=== PATIENT | male | born 1960 | race Caucasian/White ===

== ENCOUNTER 2018-11-04 17:57 | Inpatient (IN) | payer MEDICAID ==
[2018-11-04] MEDS ORDERED: Morphine 4 MG/ML VIAL ONE ×2 (19:17→21:36)
[2018-11-04] MEDS ORDERED: methylPREDNISolone Sod Succ/PF 125 MG/2 ML VIAL ONE (19:18)
[2018-11-04] MEDS ORDERED: Magnesium 2 GM/50 ML BAG (IN WATER) ONE (19:18)
[2018-11-04 19:20] LABS: Bilirubin Negative (Negative); Blood, Urine Negative (Negative); Clarity CLEAR (Clear); Glucose, Urine (Dipstick) Negative (Negative); Leukocyte Negative (Negative); Nitrite Negative (Negative); Protein, Urine (Dipstick) 100 mg/dL (Neg-Trace); Specific Gravity, Urine 1.016 (1.002-1.036); Urobilinogen 0.2 mg/dL (0.2-1.0); pH, Urine 7.5 (5.0-9.0)
[2018-11-04 19:23] LABS: Bacteria/HPF None Seen HPF (None Seen); Hyaline Casts/LPF 0-3 HYALINE CAST LPF (0-3 Hyaline); Pathc Cast-AUWi Flag 0.87 (0-2.49); RBC/HPF 0-3 HPF (0-3); Squamous Epithelial 0-3 HPF (0-3); WBC/HPF 0-3 HPF (0-3)
--- NOTE | 2018-11-04 19:30 | RAD ---
FRONTAL RADIOGRAPH CHEST 11/04/18 COMPARISON: None. HISTORY: Chest pain. FINDINGS: Lungs are clear. Mild pulmonary vascular prominence. Heart and mediastinal con tours appear grossly u nremarkable. IMPRESSION: No focal consolidation or alveolar edema. POS: [facility]
[2018-11-04 20:00] LABS: #Basophils 0.1 thou/uL (0.0-0.2); #Eosinphils 0.3 thou/uL (0.0-0.7); #Lymphocytes 2.7 thou/uL (1.20-3.40); #Monocytes 0.8 thou/uL (0.11-0.59); #Neutrophils 4.6 thou/uL (1.40-6.50); %Basophils 0.7 % (0.0-1.0); %Lymphocytes 31.7 % (21.0-51.0); %Monocytes 9.6 % (0.0-10.0); Hemoglobin 14.1 g/dL (14.0-18.0); Mean Corpuscular HGB CONC 30.7 g/dL (32.0-36.0); Mean Corpuscular Hemoglobin 29.4 pg (27.0-31.0); Mean Corpuscular Volume 95.7 fL (78.0-98.0); Mean Platelet Volume 7.7 fL (7.4-10.4); Platelet Count 306 thou/uL (130-400); RBC Distribution Width 13.7 % (11.5-14.5); White Blood Cell (WBC) Count 8.4 thou/uL (4.8-10.8)
[2018-11-04 20:40] LABS: ALT (SGPT) 16 U/L (8-55); AST (SGOT) 16 U/L (5-34); Albumin 3.8 g/dL (3.5-5.0); Alkaline Phosphatase 104 U/L (40-150); Anion Gap 13 mmol/L (10-20); BUN (Urea Nitrogen) 8 mg/dL (8.4-25.7); Bilirubin, Total 0.3 mg/dL (0.2-1.2); Calc. Creatinine Clearance 0 mL/min (70-130); Calcium 9.2 mg/dL (7.8-10.44); Carbon Dioxide 34 mmol/L (22-29); Chloride 96 mmol/L (98-107); Estimated GFR-MDRD Greater than 90; Globulin 2.8 g/dL (2.4-3.5); Glucose 95 mg/dL (70-105); Lipase 5 U/L (8-78); Protein, Total 6.6 g/dL (6.0-8.3); Sodium 139 mmol/L (136-145)
[2018-11-04 21:57] LABS: Amphetamine Not Detected (NotDetected); Barbiturates Screen Not Detected (NotDetected); Benzodiazepine Screen Not Detected (NotDetected); Cocaine Metabolite Screen Not Detected (NotDetected); Medtox Control Line Valid? VALID (VALID); Medtox Reader # READER 4; Methadone Not Detected (NotDetected); Methamphetamine Not Detected (NotDetected); Opiate Screen Detected (NotDetected); Oxycodone Screen Not Detected (NotDetected); Phencyclidine (PCP) Not Detected (NotDetected); THC/Cannabinoid Screen Not Detected (NotDetected); Tricyclic Screen Not Detected (NotDetected)
[2018-11-04] MEDS ORDERED: Acetaminophen 325 MG TAB PO PRN (23:19)
[2018-11-04] MEDS ORDERED: Ondansetron PF 4 MG/2 ML Vial IVP PRN (23:19)
[2018-11-04] MEDS ORDERED: Sodium Chloride 0.9% 1,000 ML IV SCH (23:19)
[2018-11-04] MEDS ORDERED: Ondansetron ODT 4 MG TAB SL PRN (23:19)
[2018-11-05 00:13] VITALS: BMI 36.4
[2018-11-05] MEDS: Morphine 4 MG/ML VIAL SLOW IVP PRN ×4 (01:43→20:11)
[2018-11-05] MEDS ORDERED: Calcium Carbonate 500 MG ChewTAB PO PRN (04:43)
[2018-11-05] MEDS ORDERED: Nitroglycerin 0.4 MG TAB (25 Tab Bottle) PO PRN (04:43)
[2018-11-05] MEDS ORDERED: Acetaminophen 325 MG TAB PO PRN (04:43)
--- NOTE | 2018-11-05 07:41 | HP ---
CHIEF COMPLAINT: Shortness of breath. HISTORY OF PRESENT ILLNESS: The patient is a 58-year-old male with COPD, presented to the emergency room with worsening shortness of breath over the last 2 to 3 weeks. His shortness of breath got worse yesterday. He also complains of some orthopnea with leg swelling. He is out of nebulizer medications. He had significant chest tightness and wheezing as well. He had cough that was productive of thick whitish phlegm. He denies recent immobilization, travel, syncope, palpitations, or diaphoresis. He felt better after using oxygen at home. In the emergency room, initial vital signs showed temperature 98.3, respiration 20, pulse 90, blood pressure 146/89 with O2 saturation 47% on 4 L nasal cannula. Chest x-ray was negative for infiltrate. He received magnesium nebulizer treatment and steroids in the emergency room. EKG showed sinus rhythm. PAST MEDICAL HISTORY: 1. COPD. 2. Chronic respiratory failure, on intermittent O2. 3. Hypertension. PAST SURGICAL HISTORY: 1. Left leg surgery. 2. Lumbar surgery. ALLERGIES: THE PATIENT IS ALLERGIC TO VANCOMYCIN. CURRENT HOME MEDICATIONS: 1. Lisinopril 20 mg daily. 2. [place] as needed. Please note that the patient currently out of nebulizer treatments. He also does not have any inhalers at home. FAMILY HISTORY: Negative for premature coronary artery disease. SOCIAL HISTORY: The patient continues to smoke on a daily basis. No alcohol or drug use. REVIEW OF SYSTEMS: All other review of systems was reviewed and were found negative. PHYSICAL EXAMINATION: VITAL SIGNS: As discussed above. GENERAL: A 58-year-old male in mild respiratory distress, able to complete short phrases. HEENT: Head atraumatic, normocephalic. Sclerae anicteric. Moist mucous membranes. No oral lesion. NECK: Supple. No JVD appreciated. No carotid bruit. LUNGS: Showed diffuse expiratory wheezing. There were scattered rhonchi. No rales appreciated. HEART: S1 and S2 present. Regular rate and rhythm. No rubs or gallops appreciated. No significant murmurs. ABDOMEN: Soft. Bowel sounds present. EXTREMITIES: 1+ edema in bilateral lower extremity. No calf tenderness. SKIN: Warm and dry. LYMPH NODES: No palpable lymph nodes in the neck. PERIPHERAL VASCULAR: Radial pulses palpable bilaterally. MUSCULOSKELETAL: No joint swelling or tenderness. LABORATORY FINDINGS: WBC 8.4 with hemoglobin 14.1. Troponin was negative. BNP 16.3, sodium 139, potassium 4, chloride 96, bicarb 34, BUN 8 and creatinine 0.8. Urinalysis was negative for wbc's and bacteria. Urine drug screen was positive for opiates. Chest x-ray by my review was negative for infiltrate or edema. EKG by my review as discussed above. IMPRESSION: 1. Acute hypoxic respiratory failure secondary to chronic obstructive pulmonary disease exacerbation. 2. Chronic respiratory failure, on intermittent home oxygen. 3. Obesity with a body mass index of 36.5. 4. Hypertension. 5. Chronic pain syndrome. 6. Tobacco dependence. The patient was counseled. PLAN: The patient will be monitored on the telemetry unit due to chest tightness. We will get serial troponins. We will continue steroids. We will add antibiotics and nebulizer treatments. Repeat basic metabolic profile later today. The patient was extensively counseled to quit smoking. The patient will require a prescription for DuoNeb at discharge. Job ID: [id number]
[2018-11-05] MEDS ORDERED: Aspirin Chewable 81 MG TAB PO SCH (09:00)
[2018-11-05] MEDS ORDERED: Azithromycin 250 MG TAB PO SCH (09:00)
[2018-11-05] MEDS: Enoxaparin Sodium 40 MG/0.4 ML SYRINGE SC SCH (09:16)
[2018-11-05] MEDS: Aspirin 81 mg Enteric Coated Tablet PO SCH (09:17)
[2018-11-05] MEDS: Famotidine 20 MG TAB PO SCH ×2 (09:17→20:09)
[2018-11-05] MEDS: Senokot S 8.6-50 MG TAB PO SCH ×2 (09:17→20:09)
[2018-11-05 11:18] LABS: BUN (Urea Nitrogen) 12 mg/dL (8.4-25.7); Calc. Creatinine Clearance 141 mL/min (70-130); Calcium 9.4 mg/dL (7.8-10.44); Carbon Dioxide 32 mmol/L (22-29); Chloride 96 mmol/L (98-107); Estimated GFR-MDRD 76; Glucose 250 mg/dL (70-105); Potassium 4.4 mmol/L (3.5-5.1); Sodium 142 mmol/L (136-145)
--- NOTE | 2018-11-05 12:52 | PDOC.PN ---
- Subjective Encounter Start Date: 11/05/18 Encounter Start Time: 11:15 Subjective: sob is better -: ongoing tob abuse, is going down in [place] to smoke -: no chest pain or palp - Objective Resuscitation Status - Order Detail: 11/05/18 04:43 Resuscitation Status Routine Resuscitation Status: FULL: Full Resuscitation MAR Reviewed: Yes Vital Signs & Weight: Vital Signs (12 hours) Temp Pulse Resp BP Pulse Ox 11/05/18 12:00 98.4 F 100 18 133/65 92 L 11/05/18 11:48 97 18 93 L 11/05/18 07:59 97.6 F 88 16 145/69 H 93 L 11/05/18 07:24 78 21 H 96 11/05/18 03:38 98.2 F 74 16 128/66 Weight Weight 276 lb 8 oz Result Diagrams: 11/04/18 19:51 11/05/18 01:44 Phys Exam - Physical Examination HEENT: PERRLA, moist MMs Neck: no JVD, supple Respiratory: no rales, wheezing present Cardiovascular: RRR, no significant murmur Gastrointestinal: soft, non-tender, positive bowel sounds Musculoskeletal: no edema, pulses present Neurological: non-focal, moves all 4 limbs Psychiatric: normal affect, A&O x 3 Dx/Plan (1) COPD exacerbation Code(s): J44.1 - CHRONIC OBSTRUCTIVE PULMONARY DISEASE W (ACUTE) EXACERBATION Status: Acute (2) Acute respiratory failure with hypoxia Code(s): J96.01 - ACUTE RESPIRATORY FAILURE WITH HYPOXIA Status: Resolved (3) HTN (hypertension) Code(s): I10 - ESSENTIAL (PRIMARY) HYPERTENSION Status: Chronic Qualifiers: Hypertension type: essential hypertension Qualified Code(s): I10 - Essential (primary) hypertension (4) Chronic pain syndrome Code(s): G89.4 - CHRONIC PAIN SYNDROME Status: Chronic (5) Tobacco abuse Code(s): Z72.0 - TOBACCO USE Status: Chronic - Plan is on nebs, solumedrol -: wants morphine for his chr pain, will give q6h prn -: will dc home in am -: says he moved 3 days back from [facility] to live around here -: counselled to stop smoking atleast when he has exacerbation now * . Review of Systems - Medications/Allergies Allergies/Adverse Reactions: Allergies Allergy/AdvReac Type Severity Reaction Status Date / Time vancomycin Allergy Verified 11/05/18 03:15 Medications: Current Medications Acetaminophen (Tylenol) 650 mg PO Q4H PRN PRN Reason: Headache/Fever/Mild Pain (1-3) Hydrocodone Bitart/Acetaminophen ([place] 10/325) tab PO Q4HR PRN PRN Reason: Pain Albuterol/Ipratropium (Duoneb) 3 ml NEB [id number] [facility] Last Admin: 11/05/18 11:48 Dose: 3 ml Albuterol/Ipratropium (Duoneb) 3 ml NEB [id number] PRN PRN Reason: SOB &/or Wheezing Aspirin (Ecotrin) 81 mg PO DAILY [facility] Last Admin: 11/05/18 09:17 Dose: 81 mg Calcium Carbonate (Tums) 1,000 mg PO Q4H PRN PRN Reason: Heartburn or Indigestion Enoxaparin Sodium (Lovenox) 40 mg SC 0900 [facility] Last Admin: 11/05/18 09:16 Dose: 40 mg Famotidine (Pepcid) 20 mg PO BID [facility] Last Admin: 11/05/18 09:17 Dose: 20 mg Lisinopril (Zestril) 20 mg PO DAILY [facility] Methylprednisolone Sodium Succinate (Solu-Medrol) 40 mg IVP Q6HR [facility] Last Admin: 11/05/18 12:04 Dose: 40 mg Morphine Sulfate (Morphine) 2 mg SLOW IVP Q6H PRN PRN Reason: Pain Nitroglycerin (Nitrostat) 0.4 mg PO Q5MIN PRN PRN Reason: Chest Pain Senna/Docusate Sodium (Senokot S) 1 tab PO BID [facility] Last Admin: 11/05/18 09:17 Dose: 1 tab
[2018-11-05] MEDS: HYDROcodone/Acetaminophen 10/325 mg Tablet PO PRN ×2 (15:49→21:37)
[2018-11-05] MEDS ORDERED: Nicotine 14 MG PATCH TOP SCH (16:00)
[2018-11-06] MEDS: Morphine 4 MG/ML VIAL SLOW IVP PRN ×2 (01:01→10:16)
[2018-11-06] MEDS: HYDROcodone/Acetaminophen 10/325 mg Tablet PO PRN (05:00)
[2018-11-06 05:22] LABS: #Lymphocytes 2.4 thou/uL (1.20-3.40); #Monocytes 0.7 thou/uL (0.11-0.59); #Neutrophils 10.8 thou/uL (1.40-6.50); %Basophils 0.1 % (0.0-1.0); %Eosinophils 0.2 % (0.0-10.0); %Lymphocytes 17.5 % (21.0-51.0); %Monocytes 4.9 % (0.0-10.0); %Neutrophils 77.4 % (42.0-75.0); Hemoglobin 13.1 g/dL (14.0-18.0); Mean Corpuscular HGB CONC 30.4 g/dL (32.0-36.0); Mean Corpuscular Hemoglobin 28.9 pg (27.0-31.0); Mean Platelet Volume 8.2 fL (7.4-10.4); Platelet Count 337 thou/uL (130-400); RBC Distribution Width 13.6 % (11.5-14.5); Red Blood Cell (RBC) Count 4.52 mill/uL (4.70-6.10); White Blood Cell (WBC) Count 13.9 thou/uL (4.8-10.8)
[2018-11-06 05:46] LABS: Anion Gap 15 mmol/L (10-20); BUN (Urea Nitrogen) 22 mg/dL (8.4-25.7); Calc. Creatinine Clearance 172 mL/min (70-130); Calcium 9.5 mg/dL (7.8-10.44); Carbon Dioxide 30 mmol/L (22-29); Chloride 98 mmol/L (98-107); Estimated GFR-MDRD Greater than 90; Glucose 139 mg/dL (70-105); Potassium 4.7 mmol/L (3.5-5.1); Sodium 138 mmol/L (136-145)
[2018-11-06] MEDS ORDERED: Lisinopril 20 MG TAB PO SCH (09:00)
[2018-11-06] MEDS ORDERED: Furosemide 40 MG TAB PO SCH (09:00)
[2018-11-06 09:27] VITALS: BP 140/62; TEMP 98.6
[2018-11-06] MEDS: Enoxaparin Sodium 40 MG/0.4 ML SYRINGE SC SCH (09:28)
[2018-11-06] MEDS: Senokot S 8.6-50 MG TAB PO SCH (09:28)
[2018-11-06] MEDS: Aspirin 81 mg Enteric Coated Tablet PO SCH (09:28)
[2018-11-06] MEDS: Famotidine 20 MG TAB PO SCH (09:28)
[2018-11-06 13:12] LABS: Anion Gap 18 mmol/L (10-20)
--- NOTE | 2018-11-06 14:08 | PDOC.PN ---
- Subjective Encounter Start Date: 11/06/18 Encounter Start Time: 09:45 Subjective: breathing better -: is using wheel chair to amb around - Objective Resuscitation Status - Order Detail: 11/05/18 04:43 Resuscitation Status Routine Resuscitation Status: FULL: Full Resuscitation MAR Reviewed: Yes Vital Signs & Weight: Vital Signs (12 hours) Temp Pulse Resp BP Pulse Ox 11/06/18 12:44 95 18 95 11/06/18 08:00 98.6 F 97 18 140/62 93 L 11/06/18 07:41 85 20 90 L 11/06/18 04:00 98.0 F 85 16 128/59 L 92 L Weight Weight 276 lb 8 oz I&O: 11/05/18 11/06/18 11/07/18 06:59 06:59 06:59 Intake Total 840 240 Balance 840 240 Result Diagrams: 11/06/18 04:37 11/06/18 04:37 Phys Exam - Physical Examination HEENT: PERRLA, moist MMs Neck: no JVD, supple Respiratory: no wheezing, no rales rhonchi+ Cardiovascular: RRR, no significant murmur Gastrointestinal: soft, non-tender, positive bowel sounds Musculoskeletal: no edema, pulses present Neurological: non-focal, moves all 4 limbs Psychiatric: normal affect, A&O x 3 Dx/Plan (1) COPD exacerbation Code(s): J44.1 - CHRONIC OBSTRUCTIVE PULMONARY DISEASE W (ACUTE) EXACERBATION Status: Acute (2) Acute respiratory failure with hypoxia Code(s): J96.01 - ACUTE RESPIRATORY FAILURE WITH HYPOXIA Status: Resolved (3) HTN (hypertension) Code(s): I10 - ESSENTIAL (PRIMARY) HYPERTENSION Status: Chronic Qualifiers: Hypertension type: essential hypertension Qualified Code(s): I10 - Essential (primary) hypertension (4) Chronic pain syndrome Code(s): G89.4 - CHRONIC PAIN SYNDROME Status: Chronic (5) Tobacco abuse Code(s): Z72.0 - TOBACCO USE Status: Chronic - Plan hemostable -: dc pt home -: he needs to find a pcp locally and f/u in 1 week -: he wants tylenol#3 scripts until he sees a pcp -: counselled reg smoking cessation * .
--- NOTE | 2018-11-08 15:18 | DIS ---
DATE OF ADMISSION: 11/04/2018 DATE OF DISCHARGE: 11/06/2018 DISCHARGE DISPOSITION: Home. PRIMARY DISCHARGE DIAGNOSES: Chronic obstructive pulmonary disease exacerbation with ongoing tobacco abuse; chronic pain syndrome; acute respiratory failure with hypoxia on arrival, resolved; hypertension; tobacco abuse. PROCEDURES DONE DURING HOSPITALIZATION: The patient had chest x-ray done on the day of admission, which showed no focal consolidation or alveolar edema. H and H 13 and 43, platelet count 337. Troponin x3 negative. BNP 16. Urine drug screen was positive for opiates. DISCHARGE MEDICATIONS: 1. Aspirin 81 mg p.o. daily. 2. Lasix 40 mg p.o. daily. 3. DuoNeb q.6 hourly p.r.n. 4. Lisinopril 20 mg p.o. daily. 5. Omeprazole 20 mg p.o. daily. 6. Prednisone 10 mg twice daily for 3 days, then daily for 4 days, and to discontinue. 7. Tylenol No. 3 one tab q.6 hourly p.r.n. for pain. ALLERGIES: ALLERGIC TO VANCOMYCIN. DISCHARGE PLAN: The patient to follow up with primary care physician in 1 week. BRIEF COURSE DURING HOSPITALIZATION: The patient initially came in with complaints of shortness of breath. He had ongoing tobacco abuse as well. He was essentially admitted for COPD exacerbation. The patient initially had very low saturations on arrival and was placed on nasal cannula, which promptly brought this up. He was on steroids along with nebulization. Prior to discharge, he was back on room air with normal saturations. He was counseled with regard to tobacco abuse. The patient recently moved to this area in the last 1 week or so. He needs to see a primary care physician in 1 week. Please see a [id number] documentation for the day of discharge on [employer]. Job ID: [id number]
== END 2018-11-06 12:57 | disposition home or self-care (01) | DRG 189 ==
LOC: ERS 17:57 → 2NO 23:21
PROVIDERS: ADMIT Internal Medicine; ATTEND Internal Medicine
DX: J96.01 Acute respiratory failure with hypoxia (principal); J44.1 Chronic obstructive pulmonary disease with (acute) exacerbation; I10 Essential (primary) hypertension; G89.4 Chronic pain syndrome; F17.200 Nicotine dependence, unspecified, uncomplicated; E66.9 Obesity, unspecified; Z79.899 Other long term (current) drug therapy; Z98.890 Other specified postprocedural states; Z88.1 Allergy status to other antibiotic agents; Z68.36 Body mass index [BMI] 36.0-36.9, adult; Z71.6 Tobacco abuse counseling
CPT/HCPCS: 36415; 71045; 80048; 80053; 80306; 81003; 81015; 83690; 83880; 84484; 85025; 93005; 94640; 94760; 96365; 96375; 96376; J1650; J2270; J2920; J2930; J3475; J7620